=== PATIENT | female | born 1995 | race Caucasian/White ===

== ENCOUNTER 2020-06-24 03:36 | Emergency (ER) | payer OTHER, SELFPAY ==
[2020-06-24 03:45] VITALS: BP 110/67; PULSE 81; RESP 19; TEMP 36.7; O2SAT 100; BMI 24.3
--- NOTE | 2020-06-24 04:08 | ED_ITS ---
HPI - Chest Pain General Chief Complaint: Chest Pain Stated Complaint: CHEST PAIN Time Seen by Provider: 06/24/20 04:08 Mode of arrival: ambulatory History of Present Illness HPI narrative: 24-year-old female presents with central chest pain x7 hours. Constant nonradiating. No diaphoresis no nausea no vomiting. Patient has been tested positive for COVID. Patient pending COVID testing. Patient denies fevers or chills. Denies cough or shortness of breath MD complaint: chest pain Timing of current episode: constant Onset: during rest and during exertion Pain location: substernal Pain radiation: none Severity: moderate Related Data Allergies Allergy/AdvReac Type Severity Reaction Status Date / Time No Known Allergies Allergy Verified 06/24/20 03:47 Review of Systems Review of Systems: Constitutional : No Weight loss, No Fever, No Chills, No Night Sweats, No Fatigue, No Malaise ENT/Mouth : No Hearing loss, No Ear Pain, No Nasal Congestion, No Sinus Pain, No Hoarseness, No sore throat, No Rhinorrhea, No Swallowing Difficulty Eyes: No Eye Pain, No Swelling, No Redness, No Foreign Body, No Discharge, No Vision Changes Cardiovascular : Positive Chest Pain, No SOB, No Dyspnea on Exertion, No Orthopnea, No Edema, No Palpitations Respiratory : No Cough, No Sputum, No Wheezing, No Smoke Exposure, No Dyspnea Gastrointestinal : No Nausea, No Vomiting, No Diarrhea, No Constipation, No abdominal Pain, No Hematochezia, No Melena Genitourinary : no irregular bleeding, No Dysuria, No Urinary Frequency, No Hematuria, No Urinary Incontinence, No Urgency, No Flank Pain, No Urinary Flow Changes, No Hesitancy Musculoskeletal : No joint pain, No Myalgias, No Joint Swelling Skin : No Skin Lesions, No rash Neuro : No Weakness, No Numbness, No Paresthesias, No Loss of Consciousness, No Dizziness, No Headache Psych : No Anxiety/Panic, No Depression, No SI/HI/AH/VH, No Social Issues, Heme/Lymph: No Bruising, No Bleeding,No Lymphadenopathy Endocrine : No Polyuria, No Polydipsia, No Temperature Intolerance PMFSH Past Medical History Medical History (Updated 06/24/20 @ 05:38 by Oliver Delgado DO) Patient denies medical problems Family History Family History (Updated 06/24/20 @ 04:33 by Oliver Delgado DO) Other Family history non-contributory Social History Social History Alcohol intake: unknown Smoking Status: Unknown if ever smoked Use of substances other than those prescribed or required for medical reasons: No Advance Directives: No Advance Directives Information Provided: No Physical Exam Vital Signs: Vital Signs: Last Vital Signs Temp 98.0 F 06/24/20 03:45 Pulse 81 06/24/20 03:45 Resp 19 06/24/20 03:45 BP 110/67 06/24/20 03:45 Pulse Ox 100 06/24/20 03:45 Body Mass Index 24.3 Vital signs reviewed Pulse ox interpreted by me. 100% room air. Normal Appearance: Alert. O riented X3. No acute distress. Eyes: Pupils equal, round and reactive to light. ENT: Pharynx normal. Neck: Normal inspection. Neck supple. No lymph nodes noted. No crepitus CVS: Normal heart rate and rhythm. Pulses normal. Normal S1 and S2 Respiratory: No respiratory distress. Breath sounds normal. No Wheezing. No rales Abdomen: Soft and nontender. No rigidity. No distention. good BS x4 Skin: Skin warm and dry. Normal skin color. Normal skin turgor. Extremities: No lower extremity edema. Neurovascular intact to all extremities. No Lacerations. No Rash Neuro: Oriented X 3. No motor deficit. No sensory deficit. Moving all extermities. No slurred speech. MDM - Chest Pain MDM Narrative Medical decision making narrative: 24-year-old female chief complaint of chest pain since prior tonight. Negative D-dimer negative troponin negative EKG negative labs. Patient in no distress on phone. No respiratory shortness of breath. Does have exposure to COVID we did perform a test in which I discussed with her to self isolate until test results come back. Patient in no distress Differential Diagnosis Differential diagnosis: Likely pneumothorax Differential diagnosis: Pulmonary embolism, acute coronary syndrome viral syndrome Lab Data Attestation: I reviewed the patient's lab results. Result diagrams: 06/24/20 04:49 06/24/20 04:49 Labs: Lab Results 06/24/20 06/24/20 06/24/20 Range/Units 04:49 04:49 04:50 D-Dimer 220 NG/ML Sodium 138 (135-145) mmol/L Potassium 3.7 (3.3-5.1) mmol/l Chloride 103 (96-108) mmol/L Carbon Dioxide 29 (22-29) mmol/L Anion Gap 10 L (12-20) BUN 13 (9-16) mg/dL Creatinine 0.66 (0.5-1.4) mg/dL Estim Creat Clear Calc 106.8 Estimated GFR > 60 Random Glucose 91 (60-115) mg/dL Calcium 9.1 (8.4-10.2) mg/dL Troponin I High Sens < 3.5 (<3.5-17.0) ng/L Beta HCG, Quant < 2 mIU/mL ECG Data ECG #1: Attestation: I personally reviewed and interpreted this ECG as follows: Interpretation: 70 beats per minute. Normal sinus rhythm. Normal axis. No ST-T changes Discharge Plan Discharge Clinical Impression: Chest pain Patient Disposition: Home, Self-Care Instructions: Chest Pain (ED) Additional Instructions: Thank you for visiting the emergency department today. If your symptoms worsen or do not resolve completely please return to the emergency department immediately or call 911. If you have any questions please call your primary care physician CDC Guidelines for home isolation: Follow these instructions until your Covid results return - Stay away from others - Limit contact with pets and animals: If you must care for a pet, wash your hands before and after interacting with them - Wear a mask if you are sick - Cover your mouth and nose with a tissue when you cough or sneeze. Dispose of t issues in a lined trash can and wash your hands immediately with soap and water for at least 20 seconds. If soap and water are not available, clean hands with alcohol-based hand community support specialist that contains at least 60% alcohol. - Clean your hands often with soap and water for at least 20 seconds - Avoid touching your eyes, nose and mouth with unwashed hands - Do not share dishes, drinking glasses, cups, eating utensils, towels, or bedding with other people in your home. After using these items, wash them thoroughly with soap and water or put in the sound effects supervisor. - Clean high-touch surfaces in your isolation area (?sick room? and bathroom) every day; let a caregiver clean and disinfect high-touch surfaces in other areas of the home. Clean the area or item with soap and water or another detergent if it is dirty. Then, use a household disinfectant. Seek medical attention, but call first: - Seek medical care right away if your illness is worsening (for example, if you have difficulty breathing). - Call your doctor before going in: Before going to the doctor?s office or emergency room, call ahead and tell them your symptoms. They will tell you what to do. - If possible, put on a facemask before you enter the building. If you can?t put on a facemask, try to keep a safe distance from other people (at least 6 feet away). This will help protect the people in the office or waiting room. - Follow care instructions from your healthcare provider and local health department: Your local health authorities will give instructions on checking your symptoms and reporting information. Emergency warning signs for COVID-19: - Difficulty breathing or shortness of breath - Persistent pain or pressure in the chest - New confusion or inability to arouse - Bluish lips or face Referrals: [facility] [Provider Group] - 2 days
--- NOTE | 2020-06-24 04:20 | ECG_ITS ---
Test Reason : CHEST PAIN Blood Pressure : / mmHG Vent. Rate : 070 BPM Atrial Rate : 070 BPM P-R Int : 130 ms QRS Dur : 098 ms QT Int : 398 ms P-R-T Axes : 076 060 060 degrees QTc Int : 429 ms Normal sinus rhythm Possible Left atrial enlargement Nonspecific T wave abnormality RSR' or QR pattern in V1 suggests right ventricular conduction delay Otherwise normal ECG No previous ECGs available Referred By: Oliver Delgado Electronically Signed By:ORI TELLEZ MD
--- NOTE | 2020-06-24 04:26 | XR_ITS ---
EXAMINATION: XR CHEST CLINICAL INFORMATION: Chest pain COMPARISON: None TECHNIQUE: Frontal view of the chest was obtained. FINDINGS: Cardiac leads overlie the chest. The lungs are well expanded. There is no focal consolidation, edema, or effusion. No pneumothorax. The cardiomediastinal silhouette is within normal limits. No acute osseous abnormality. XR/XR chest 1V IMPRESSION: No acute pulmonary finding.
[2020-06-24 05:05] LABS: D Dimer 220 NG/ML
[2020-06-24 05:23] LABS: Anion Gap 10 (12-20); Blood Urea Nitrogen 13 mg/dL (9-16); Calcium 9.1 mg/dL (8.4-10.2); Carbon Dioxide 29 mmol/L (22-29); Chloride 103 mmol/L (96-108); Creatinine Clr Calc Pharmacy 106.8; Estimated Glomerular Filt Rate > 60; Glucose Random 91 mg/dL (60-115); Potassium 3.7 mmol/l (3.3-5.1); Sodium 138 mmol/L (135-145)
[2020-06-24 05:30] LABS: HCG Quantitative < 2 mIU/mL
[2020-06-24 05:31] LABS: Troponin-I High Sensitivity < 3.5 ng/L (<3.5-17.0)
== END 2020-06-24 05:57 | disposition home or self-care (01) ==
PROVIDERS: Emergency Provider Emergency Medicine
DX: R07.9 Chest pain, unspecified (principal); Z20.828 Contact with and (suspected) exposure to other viral communicable diseases
CPT/HCPCS: 36415; 71045; 80048; 84484; 84702; 85379; 93005; 99283; 99284; U0003